=== PATIENT | female | born 2000 | race Caucasian/White ===

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

== ENCOUNTER 2022-03-27 09:22 | Outpatient (REF) | payer MEDICAID, SELFPAY ==
[2022-03-28 15:05] LABS: Chlamydia Result Negative (Negative); GC Result Negative (Negative)
== END 2022-03-27 09:23 | disposition home or self-care (01) ==
LOC: NCHCN 09:22
PROVIDERS: PCP Nurse Practitioner Family; Visit Provider Nurse Practitioner Family
DX: Z11.3 Encounter for screening for infections with a predominantly sexual mode of transmission (principal); Z97.5 Presence of (intrauterine) contraceptive device
CPT/HCPCS: 87491; 87591